=== PATIENT | female | born 1960 | race African-American/Black ===

== ENCOUNTER 2017-08-29 11:55 | Inpatient (IN) | payer OTHER ==
[2017-08-29 12:29] VITALS: BMI 20.2
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
[2017-08-29] MEDS ORDERED: IBUPROFEN 400 MG TABLET (FP) PO PRN (14:07)
[2017-08-29] MEDS ORDERED: MAGNESIUM CITRATE 300 ML BOTTLE PO PRN (14:07)
[2017-08-29] MEDS ORDERED: LOPERAMIDE HCL 2 MG CAPSULE PO PRN (14:07)
[2017-08-29] MEDS ORDERED: ACETAMINOPHEN 325 MG TABLET (FP) PO PRN (14:07)
[2017-08-29] MEDS ORDERED: MENTHOL/PHENOL 1 EACH UD MM PRN (14:07)
[2017-08-29] MEDS ORDERED: guaiFENesin/D-METHORPHAN HB 10 ML UNIT-DOSE CUPS PO PRN (14:07)
[2017-08-29] MEDS ORDERED: P-EPHED 60MG/TRIPROLIDI 2.5MG TABLET PO PRN (14:07)
[2017-08-29] MEDS ORDERED: MAGNESIUM HYDROX 2400MG/30ML ORAL SUSPENSION 30 ML CUP PO PRN (14:07)
[2017-08-29] MEDS ORDERED: ALBUTEROL SO4 18 GM HFA INHALER IH PRN (14:23)
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
[2017-08-29] MEDS ORDERED: TUBERCULIN PPD 5 TU/0.1ML VIAL ID ONE (17:36)
[2017-08-29] MEDS: NICOTINE 14 MG/24 HOURS TOPICAL PATCH TD SCH (17:40)
[2017-08-29 18:43] LABS: URINE APPEARANCE CLEAR; URINE BILIRUBIN NEGATIVE (NEGATIVE); URINE BLOOD NEGATIVE (NEGATIVE); URINE COLOR STRAW; URINE GLUCOSE (UA) NEGATIVE (NEGATIVE); URINE KETONE NEGATIVE (NEGATIVE); URINE NITRITE NEGATIVE (NEGATIVE); URINE PROTEIN NEGATIVE (NEGATIVE); URINE UROBILINOGEN NEGATIVE mg/dL (0.2-1.0)
[2017-08-29 21:07] LABS: URINE LEUK ESTERASE Negative (NEGATIVE)
[2017-08-29] MEDS: diphenhydrAMINE HCL 50 MG CAPSULE PO PRN (21:44)
[2017-08-29] MEDS: THIAMINE HCL 100 MG TABLET (FP) PO SCH (21:44)
[2017-08-30] MEDS: NICOTINE 14 MG/24 HOURS TOPICAL PATCH TD SCH (09:57)
[2017-08-30] MEDS: PRENATAL VITAMINS W/ FOLIC ACID TABLET (FP) PO SCH (09:58)
[2017-08-30 10:17] LABS: MEAN CELL VOLUME 83.4 fl (80-96); WHITE BLOOD COUNT 5.5 K/mm3 (4.0-10.0)
[2017-08-30 10:20] LABS: MCHC 32.3 g/dl (32.0-36.0); MEAN PLT VOLUME 9.1 fl (7.5-11.1); PLATELET COUNT 256 K/MM3 (134-434)
[2017-08-30 10:40] LABS: ALBUMIN 3.5 g/dl (3.4-5.0); ALK PHOS 53 U/L (45-117); ANION GAP 7 (8-16); BILIRUBIN,TOTAL 0.3 mg/dL (0.2-1.0); CALCIUM 8.8 mg/dL (8.5-10.1); CO2 27 mmol/L (21-32); CREATININE 0.6 mg/dL (0.55-1.02); GLUCOSE,RANDOM 92 mg/dL (74-106); SGPT/ALT 31 U/L (12-78)
[2017-08-30 10:48] LABS: SGOT/AST 20 U/L (15-37)
[2017-08-30 12:45] LABS: SICKLE CELL SCREEN POSITIVE (NEGATIVE)
[2017-08-30] MEDS: THIAMINE HCL 100 MG TABLET (FP) PO SCH (21:34)
[2017-08-30] MEDS: diphenhydrAMINE HCL 50 MG CAPSULE PO PRN (21:34)
--- NOTE | 2017-08-30 22:28 | EKG ---
Test Reason : Blood Pressure : / mmHG Vent. Rate : 059 BPM Atrial Rate : 059 BPM P-R Int : 128 ms QRS Dur : 084 ms QT Int : 430 ms P-R-T Axes : 060 087 037 degrees QTc Int : 425 ms SINUS BRADYCARDIA NO PREVIOUS ECGS AVAILABLE Confirmed by DINORAH MEDEIROS MD ([id number]) on 08/30/2017 10:27:49 PM Referred By: Confirmed By:DINORAH MEDEIROS MD
[2017-08-31] MEDS: PRENATAL VITAMINS W/ FOLIC ACID TABLET (FP) PO SCH (10:33)
[2017-08-31] MEDS: NICOTINE 14 MG/24 HOURS TOPICAL PATCH TD SCH (10:33)
--- NOTE | 2017-08-31 13:23 | PN ---
[facility] Progress Note Note: patient has history of sickle cell trait
[2017-08-31] MEDS: THIAMINE HCL 100 MG TABLET (FP) PO SCH (21:21)
[2017-08-31] MEDS: diphenhydrAMINE HCL 50 MG CAPSULE PO PRN (21:22)
[2017-09-01] MEDS: PRENATAL VITAMINS W/ FOLIC ACID TABLET (FP) PO SCH (10:08)
[2017-09-01] MEDS: NICOTINE 14 MG/24 HOURS TOPICAL PATCH TD SCH (10:08)
[2017-09-01] MEDS: MAG HYDROX/AL HYDROX/SIMETH 30 ML UNIT-DOSE CUP PO PRN ×2 (10:09→21:14)
[2017-09-01] MEDS: THIAMINE HCL 100 MG TABLET (FP) PO SCH (21:13)
[2017-09-01] MEDS: diphenhydrAMINE HCL 50 MG CAPSULE PO PRN (21:14)
[2017-09-02] MEDS: PRENATAL VITAMINS W/ FOLIC ACID TABLET (FP) PO SCH (10:13)
[2017-09-02] MEDS: NICOTINE 14 MG/24 HOURS TOPICAL PATCH TD SCH (10:13)
[2017-09-02] MEDS: MAG HYDROX/AL HYDROX/SIMETH 30 ML UNIT-DOSE CUP PO PRN ×2 (13:02→21:14)
[2017-09-02] MEDS: NICOTINE POLACRILEX 2 MG GUM BUC PRN (20:01)
[2017-09-02] MEDS: THIAMINE HCL 100 MG TABLET (FP) PO SCH (21:12)
[2017-09-02] MEDS: diphenhydrAMINE HCL 50 MG CAPSULE PO PRN (21:13)
[2017-09-03] MEDS: MAG HYDROX/AL HYDROX/SIMETH 30 ML UNIT-DOSE CUP PO PRN (07:06)
[2017-09-03] MEDS: NICOTINE 14 MG/24 HOURS TOPICAL PATCH TD SCH (10:18)
[2017-09-03] MEDS: PRENATAL VITAMINS W/ FOLIC ACID TABLET (FP) PO SCH (10:18)
[2017-09-03] MEDS ORDERED: SIMETHICONE 80 MG TAB.CHEW (FP) PO PRN (11:08)
[2017-09-03] MEDS ORDERED: PANTOPRAZOLE 40 MG TABLET (FP) PO SCH (11:15)
[2017-09-03] MEDS ORDERED: PT OWN MED DRAWER 7, Y5N ONE (11:29)
[2017-09-03] MEDS: RANITIDINE HCL 150 MG TABLET (FP) PO SCH ×2 (11:32→21:51)
[2017-09-03] MEDS: THIAMINE HCL 100 MG TABLET (FP) PO SCH (21:51)
[2017-09-03] MEDS: diphenhydrAMINE HCL 50 MG CAPSULE PO PRN (21:52)
[2017-09-04] MEDS: RANITIDINE HCL 150 MG TABLET (FP) PO SCH ×2 (10:28→21:55)
[2017-09-04] MEDS: PRENATAL VITAMINS W/ FOLIC ACID TABLET (FP) PO SCH (10:28)
[2017-09-04] MEDS: NICOTINE 14 MG/24 HOURS TOPICAL PATCH TD SCH (10:28)
[2017-09-04] MEDS: NICOTINE POLACRILEX 2 MG GUM BUC PRN (10:30)
[2017-09-04 16:19] LABS: Hgb A2 3.8 % (0.7-3.1)
[2017-09-04] MEDS: THIAMINE HCL 100 MG TABLET (FP) PO SCH (21:55)
[2017-09-04] MEDS: diphenhydrAMINE HCL 50 MG CAPSULE PO PRN (21:56)
[2017-09-05] MEDS: NICOTINE POLACRILEX 2 MG GUM BUC PRN (09:58)
[2017-09-05] MEDS: RANITIDINE HCL 150 MG TABLET (FP) PO SCH ×2 (09:58→21:39)
[2017-09-05] MEDS: PRENATAL VITAMINS W/ FOLIC ACID TABLET (FP) PO SCH (09:58)
[2017-09-05] MEDS: NICOTINE 14 MG/24 HOURS TOPICAL PATCH TD SCH (09:58)
[2017-09-05] MEDS: THIAMINE HCL 100 MG TABLET (FP) PO SCH (21:39)
[2017-09-05] MEDS: diphenhydrAMINE HCL 50 MG CAPSULE PO PRN (21:40)
[2017-09-06] MEDS: NICOTINE 14 MG/24 HOURS TOPICAL PATCH TD SCH (10:26)
[2017-09-06] MEDS: RANITIDINE HCL 150 MG TABLET (FP) PO SCH ×2 (10:26→21:42)
[2017-09-06] MEDS: PRENATAL VITAMINS W/ FOLIC ACID TABLET (FP) PO SCH (10:26)
[2017-09-06] MEDS: NICOTINE POLACRILEX 2 MG GUM BUC PRN (10:27)
[2017-09-06] MEDS: THIAMINE HCL 100 MG TABLET (FP) PO SCH (21:42)
[2017-09-07] MEDS: RANITIDINE HCL 150 MG TABLET (FP) PO SCH ×2 (10:27→21:44)
[2017-09-07] MEDS: PRENATAL VITAMINS W/ FOLIC ACID TABLET (FP) PO SCH (10:27)
[2017-09-07] MEDS: NICOTINE 14 MG/24 HOURS TOPICAL PATCH TD SCH (10:28)
[2017-09-07] MEDS: THIAMINE HCL 100 MG TABLET (FP) PO SCH (21:44)
[2017-09-07] MEDS: diphenhydrAMINE HCL 50 MG CAPSULE PO PRN (21:44)
[2017-09-08] MEDS: NICOTINE 14 MG/24 HOURS TOPICAL PATCH TD SCH (10:03)
[2017-09-08] MEDS: PRENATAL VITAMINS W/ FOLIC ACID TABLET (FP) PO SCH (10:03)
[2017-09-08] MEDS: RANITIDINE HCL 150 MG TABLET (FP) PO SCH ×2 (10:04→21:35)
[2017-09-08] MEDS: NICOTINE POLACRILEX 2 MG GUM BUC PRN (10:04)
[2017-09-08] MEDS: THIAMINE HCL 100 MG TABLET (FP) PO SCH (21:35)
[2017-09-08] MEDS: diphenhydrAMINE HCL 50 MG CAPSULE PO PRN (21:36)
[2017-09-09] MEDS: PRENATAL VITAMINS W/ FOLIC ACID TABLET (FP) PO SCH (10:23)
[2017-09-09] MEDS: NICOTINE POLACRILEX 2 MG GUM BUC PRN (10:23)
[2017-09-09] MEDS: NICOTINE 14 MG/24 HOURS TOPICAL PATCH TD SCH (10:23)
[2017-09-09] MEDS: RANITIDINE HCL 150 MG TABLET (FP) PO SCH ×2 (10:23→21:36)
[2017-09-09] MEDS: THIAMINE HCL 100 MG TABLET (FP) PO SCH (21:36)
[2017-09-09] MEDS: diphenhydrAMINE HCL 50 MG CAPSULE PO PRN (21:37)
[2017-09-10] MEDS: PRENATAL VITAMINS W/ FOLIC ACID TABLET (FP) PO SCH (10:27)
[2017-09-10] MEDS: NICOTINE POLACRILEX 2 MG GUM BUC PRN (10:27)
[2017-09-10] MEDS: RANITIDINE HCL 150 MG TABLET (FP) PO SCH ×2 (10:27→21:43)
[2017-09-10] MEDS: NICOTINE 14 MG/24 HOURS TOPICAL PATCH TD SCH (10:27)
[2017-09-10] MEDS: MAG HYDROX/AL HYDROX/SIMETH 30 ML UNIT-DOSE CUP PO PRN (12:53)
[2017-09-10] MEDS: THIAMINE HCL 100 MG TABLET (FP) PO SCH (21:43)
[2017-09-10] MEDS: diphenhydrAMINE HCL 50 MG CAPSULE PO PRN (21:44)
[2017-09-11] MEDS: RANITIDINE HCL 150 MG TABLET (FP) PO SCH ×2 (10:17→21:45)
[2017-09-11] MEDS: NICOTINE 14 MG/24 HOURS TOPICAL PATCH TD SCH (10:17)
[2017-09-11] MEDS: PRENATAL VITAMINS W/ FOLIC ACID TABLET (FP) PO SCH (10:17)
[2017-09-11] MEDS: NICOTINE POLACRILEX 2 MG GUM BUC PRN (10:19)
[2017-09-11] MEDS: diphenhydrAMINE HCL 50 MG CAPSULE PO PRN (21:45)
[2017-09-11] MEDS: THIAMINE HCL 100 MG TABLET (FP) PO SCH (21:45)
[2017-09-12] MEDS: NICOTINE 14 MG/24 HOURS TOPICAL PATCH TD SCH (10:23)
[2017-09-12] MEDS: RANITIDINE HCL 150 MG TABLET (FP) PO SCH ×2 (10:24→21:48)
[2017-09-12] MEDS: PRENATAL VITAMINS W/ FOLIC ACID TABLET (FP) PO SCH (10:24)
[2017-09-12] MEDS: MAG HYDROX/AL HYDROX/SIMETH 30 ML UNIT-DOSE CUP PO PRN (10:57)
[2017-09-12] MEDS: THIAMINE HCL 100 MG TABLET (FP) PO SCH (21:48)
[2017-09-12] MEDS: diphenhydrAMINE HCL 50 MG CAPSULE PO PRN (21:49)
[2017-09-13] MEDS: RANITIDINE HCL 150 MG TABLET (FP) PO SCH ×2 (10:18→21:44)
[2017-09-13] MEDS: NICOTINE POLACRILEX 2 MG GUM BUC PRN (10:18)
[2017-09-13] MEDS: NICOTINE 14 MG/24 HOURS TOPICAL PATCH TD SCH (10:18)
[2017-09-13] MEDS: PRENATAL VITAMINS W/ FOLIC ACID TABLET (FP) PO SCH (10:18)
[2017-09-13] MEDS: MAG HYDROX/AL HYDROX/SIMETH 30 ML UNIT-DOSE CUP PO PRN (14:12)
[2017-09-13] MEDS: diphenhydrAMINE HCL 50 MG CAPSULE PO PRN (21:44)
[2017-09-13] MEDS: THIAMINE HCL 100 MG TABLET (FP) PO SCH (21:44)
[2017-09-14] MEDS: PRENATAL VITAMINS W/ FOLIC ACID TABLET (FP) PO SCH (10:25)
[2017-09-14] MEDS: NICOTINE 14 MG/24 HOURS TOPICAL PATCH TD SCH (10:25)
[2017-09-14] MEDS: RANITIDINE HCL 150 MG TABLET (FP) PO SCH ×2 (10:25→22:00)
[2017-09-14] MEDS: NICOTINE POLACRILEX 2 MG GUM BUC PRN (10:27)
[2017-09-14] MEDS: diphenhydrAMINE HCL 50 MG CAPSULE PO PRN (22:00)
[2017-09-14] MEDS: THIAMINE HCL 100 MG TABLET (FP) PO SCH (22:00)
[2017-09-15] MEDS: NICOTINE 14 MG/24 HOURS TOPICAL PATCH TD SCH (10:21)
[2017-09-15] MEDS: RANITIDINE HCL 150 MG TABLET (FP) PO SCH ×2 (10:21→21:46)
[2017-09-15] MEDS: PRENATAL VITAMINS W/ FOLIC ACID TABLET (FP) PO SCH (10:21)
[2017-09-15] MEDS: NICOTINE POLACRILEX 2 MG GUM BUC PRN (10:22)
[2017-09-15] MEDS: THIAMINE HCL 100 MG TABLET (FP) PO SCH (21:47)
[2017-09-15] MEDS: diphenhydrAMINE HCL 50 MG CAPSULE PO PRN (21:47)
[2017-09-16] MEDS: NICOTINE 14 MG/24 HOURS TOPICAL PATCH TD SCH (10:15)
[2017-09-16] MEDS: RANITIDINE HCL 150 MG TABLET (FP) PO SCH ×2 (10:15→21:43)
[2017-09-16] MEDS: PRENATAL VITAMINS W/ FOLIC ACID TABLET (FP) PO SCH (10:16)
[2017-09-16] MEDS: NICOTINE POLACRILEX 2 MG GUM BUC PRN (10:17)
[2017-09-16] MEDS: THIAMINE HCL 100 MG TABLET (FP) PO SCH (21:43)
[2017-09-16] MEDS: diphenhydrAMINE HCL 50 MG CAPSULE PO PRN (21:44)
[2017-09-17] MEDS: NICOTINE 14 MG/24 HOURS TOPICAL PATCH TD SCH (10:24)
[2017-09-17] MEDS: RANITIDINE HCL 150 MG TABLET (FP) PO SCH ×2 (10:24→21:43)
[2017-09-17] MEDS: PRENATAL VITAMINS W/ FOLIC ACID TABLET (FP) PO SCH (10:24)
[2017-09-17] MEDS: NICOTINE POLACRILEX 2 MG GUM BUC PRN (10:25)
[2017-09-17] MEDS: THIAMINE HCL 100 MG TABLET (FP) PO SCH (21:43)
[2017-09-17] MEDS: diphenhydrAMINE HCL 50 MG CAPSULE PO PRN (21:43)
[2017-09-18] MEDS: NICOTINE 14 MG/24 HOURS TOPICAL PATCH TD SCH (10:17)
[2017-09-18] MEDS: RANITIDINE HCL 150 MG TABLET (FP) PO SCH ×2 (10:18→21:44)
[2017-09-18] MEDS: NICOTINE POLACRILEX 2 MG GUM BUC PRN (10:18)
[2017-09-18] MEDS: PRENATAL VITAMINS W/ FOLIC ACID TABLET (FP) PO SCH (10:18)
--- NOTE | 2017-09-18 12:08 | PN ---
Psychiatric Progress Note Vital Signs: Vital Signs Period Temp Pulse Resp BP Sys/Valdez Pulse Ox Last 24 Hr 97.8 F 73 16-18 116/75 Date of Session: 09/18/17 Chief Complaint:: Discharge Note HPI: Patient addressing Opoid Dependence comorbid with Nicotine Dependence and Substance-induced Sleep Disorder ROS: Anemia, Asthma were medically managed Current Medications: Active Medications Generic Name Dose Route Start Last Admin Trade Name Freq PRN Reason Stop Dose Admin Acetaminophen 650 mg 08/29/17 14:07 Tylenol - PO Q4H PRN PAIN Al Hydroxide/Mg Hydroxide 30 ml 08/29/17 14:07 09/13/17 14:12 Mylanta Oral Suspension - PO 30 ml Q6H PRN Administration DYSPEPSIA Albuterol Sulfate 2 puff 08/29/17 14:23 Ventolin Hfa Inhaler - IH Q4H PRN ASTHMA Diphenhydramine HCl 50 mg 08/29/17 15:35 09/17/17 21:43 Benadryl - PO 50 mg HS PRN Administration INSOMNIA Eucalyptus/Menthol/Phenol/Sorbitol 1 each 08/29/17 14:07 Cepastat Lozenge - MM Q4H PRN SORE THROAT Guaifenesin 10 ml 08/29/17 14:07 Robitussin Dm - PO Q6H PRN COUGH Loperamide HCl 4 mg 08/29/17 14:07 Imodium - PO Q6H PRN DIARRHEA Magnesium Citrate 300 ml 08/29/17 14:07 Citroma - PO Q48H PRN CONSTIPATION Magnesium Hydroxide 30 ml 08/29/17 14:07 Milk Of Magnesia - PO DAILY PRN CONSTIPATION Nicotine 14 mg 08/29/17 14:15 09/18/17 10:17 Nicoderm Patch - TD 14 mg DAILY THERESA Administration Nicotine Polacrilex 2 mg 08/29/17 14:07 09/18/17 10:18 Nicorette Gum - BUC 2 mg Q2H PRN Administration NICOTINE REPLACEMENT RX Multivit/Folic Acid/Iron 1 tab 08/30/17 10:00 09/18/17 10:18 Vitamins (Sjr) - PO 1 tab DAILY THERESA Administration Pseudoephedrine/Triprolidine 1 combo 08/29/17 14:07 Actifed - PO TID PRN NASAL CONGESTION Ranitidine HCl 150 mg 09/03/17 11:15 09/18/17 10:18 Zantac - PO 150 mg BID THERESA Administration Simethicone 80 mg 09/03/17 11:08 Mylicon - PO Q4H PRN INDIGESTION Thiamine HCl 100 mg 08/29/17 22:00 09/17/17 21:43 Vitamin B1 - PO 100 mg HS THERESA Administration Current Side Effect: No Lab tests ordered: Yes Lab tests reviewed: Yes Provider note:: Patient will complete this program on 09/19/17. She has met her treatment goals and will continue to address her issues in outpatient treatment at [facility] at [address] [place] [address]. Told curriculum writer that from her participation in this program, she has learned the importance of complying to treatment at her outpatient program as well as going to/. She responded well to Benadryl 50 mg po HS for insomnia. Script that that medication will be electronically transmitted to [facility] at [address] [place] [address]. She is stable for discharge on 09/19/17 Total face to face time:: 35 Psychiatric Treatment Plan - Problem List (1) Opioid dependence Current Visit: Yes (2) Nicotine dependence Current Visit: Yes (3) Substance-induced sleep disorder Current Visit: Yes (4) Bronchial asthma Current Visit: Yes (5) History of anemia Current Visit: Yes Initial treatment plan: Patient will be discharged tomorrow and referred to [facility] for outpatient treatment
[2017-09-18] MEDS: THIAMINE HCL 100 MG TABLET (FP) PO SCH (21:44)
[2017-09-18] MEDS: diphenhydrAMINE HCL 50 MG CAPSULE PO PRN (21:45)
[2017-09-19 07:14] VITALS: BP 105/72; PULSE 80; TEMP 98.1
[2017-09-19] MEDS: PRENATAL VITAMINS W/ FOLIC ACID TABLET (FP) PO SCH (09:47)
[2017-09-19] MEDS: NICOTINE 14 MG/24 HOURS TOPICAL PATCH TD SCH (09:47)
[2017-09-19] MEDS: RANITIDINE HCL 150 MG TABLET (FP) PO SCH (09:47)
== END 2017-09-19 10:08 | disposition home or self-care (01) | DRG 772 ==
LOC: EDSEX → YASAS 11:55 → Y3E 13:50
PROVIDERS: ADMIT Psychiatry & Neurology Psychiatry; ATTEND Psychiatry & Neurology Psychiatry
PROC: HZ42ZZZ Group Counseling for Substance Abuse Treatment, Cognitive-Behavioral (ICD-10-PCS; principal; 2017-08-29)
DX: F11.20 Opioid dependence, uncomplicated (principal); F19.282 Other psychoactive substance dependence with psychoactive substance-induced sleep disorder; J45.909 Unspecified asthma, uncomplicated; Z86.2 Personal history of diseases of the blood and blood-forming organs and certain disorders involving the immune mechanism; Z59.0 Homelessness
CPT/HCPCS: 36415; 80053; 81003; 83021; 85027; 85660; 86593; 93005; 93010